=== PATIENT | female | born 1950 | race Caucasian/White ===

== ENCOUNTER 2024-10-22 10:18 | Day surgery (SDC) | payer MEDICARE, MEDICAID ==
[2024-10-22] MEDS ORDERED: Dexamethasone 4 MG/ML SDV IV ONE (10:19)
[2024-10-22] MEDS ORDERED: Midazolam 1 MG/ML 2 ML SDV IV ONE (10:19)
[2024-10-22] MEDS ORDERED: Sodium Chloride 0.9% 10 ML Syringe IV ONE (10:19)
[2024-10-22] MEDS ORDERED: Sodium Chloride 0.9% 10 ML Syringe FLUSH PRN (10:30)
[2024-10-22] MEDS ORDERED: Ondansetron 4 MG/2 ML SDV IVPUSH PRN (10:30)
[2024-10-22] MEDS: Moxifloxacin 0.5% Ophth Soln 3 ML Bottle EYELF ONE (11:29)
[2024-10-22] MEDS: Povidone-Iodine 5% Sterile Ophth Soln 30 ML Bottle EYELF ONE ×2 (11:29→12:37)
[2024-10-22] MEDS: Timolol Maleate 0.5% Ophth Soln 5 ML Bottle EYELF ONE (11:31)
[2024-10-22] MEDS: Phenylephrine 10% Ophth Soln 5 ML Bot EYELF ONE (11:31)
[2024-10-22] MEDS: Cataract Ophth Solution EYELF ONE (11:32)
[2024-10-22] MEDS: Dexamethasone 4 MG/ML SDV IOCULAR ONE (12:44)
[2024-10-22] MEDS: Apraclonidine 0.5% Ophth Soln 5 ML Bot EYELF ONE (12:53)
[2024-10-22] MEDS: Diclofenac Sodium 0.1% Ophth Soln 5 ML Bottle EYELF ONE (12:53)
[2024-10-22] MEDS: Dexamethasone/Neomycin/Polymyxin B Ophth Oint 3.5 GM Tube EYELF ONE (12:53)
[2024-10-22 13:28] VITALS: BP 106/63; PULSE 60
== END 2024-10-22 13:30 | disposition home or self-care (01) ==
LOC: DL.SDS 10:18
PROVIDERS: ATTEND Ophthalmology
DX: H25.812 Combined forms of age-related cataract, left eye (principal); I10 Essential (primary) hypertension; Z79.899 Other long term (current) drug therapy
CPT/HCPCS: 00142; 66984; 99100; A9270; J1100; J2003; J2250; J3373; V2632; J3490